=== PATIENT | female | born 1960 | race Caucasian/White ===

== ENCOUNTER 2023-06-21 06:45 | Day surgery (SDC) | payer OTHER ==
[~2023-06-21] VITALS: Ht 165.1 cm; Wt 82.3 kg
[~2023-06-21 06:45] MED LIST: LAMO150T3 PO; LISI10TA22 PO; LORA-1041 PO; METF500T13 PO; NS 1,000 ML IV ONE; SIMV20TA22 PO
[2023-06-21] MEDS ORDERED: TRUL10IN SC (07:18)
[2023-06-21] MEDS ORDERED: HYDR-3363 PO (07:18)
[2023-06-21] MEDS ORDERED: propofoL 200 MG/20 ML VIAL As Ordered ONE ×2 (08:27→08:51)
[2023-06-21] MEDS ORDERED: LIDOCAINE 2% 100MG/5ML SDV (FOR ANES.) As Ordered ONE (08:27)
[2023-06-21] MEDS ORDERED: PHENYLephrine 500MCG 5ML (100MCG/ML) SYRINGE As Ordered ONE (08:43)
[2023-06-21 09:15] VITALS: BP 108/64; TEMP 96.8; O2SAT 100
== END 2023-06-21 09:30 | disposition home or self-care (01) ==
LOC: M OPP 06:45
PROVIDERS: ATTEND Internal Medicine Gastroenterology
DX: Z12.11 Encounter for screening for malignant neoplasm of colon (principal); D12.6 Benign neoplasm of colon, unspecified; K63.5 Polyp of colon; K57.30 Diverticulosis of large intestine without perforation or abscess without bleeding; K64.4 Residual hemorrhoidal skin tags; K64.8 Other hemorrhoids; E11.9 Type 2 diabetes mellitus without complications; Z79.02 Long term (current) use of antithrombotics/antiplatelets; Z79.84 Long term (current) use of oral hypoglycemic drugs; Z79.899 Other long term (current) drug therapy; Z88.1 Allergy status to other antibiotic agents; Z88.8 Allergy status to other drugs, medicaments and biological substances; Z91.048 Other nonmedicinal substance allergy status
CPT/HCPCS: 45385; 88305; J2371